=== PATIENT | male | born 1990 | race African-American/Black ===

== ENCOUNTER 2018-07-16 06:11 | Emergency (ER) | payer OTHER ==
[2018-07-16 06:18] VITALS: BP 141/85
[2018-07-16] MEDS ORDERED: KETOROLAC 60 MG/2 ML VIAL IM STA (06:25)
[2018-07-16] MEDS ORDERED: DEXAMETHASONE 10 MG/ML VIAL PO STA (06:25)
[2018-07-16] MEDS ORDERED: CHERRY SYRUP 10 ML UDC PO ONE (06:28)
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
== END 2018-07-16 06:42 | disposition home or self-care (01) ==
LOC: ED 06:11
DX: M54.9 Dorsalgia, unspecified (principal)
CPT/HCPCS: 96372; 99283; A9270

== ENCOUNTER 2018-12-14 11:43 | Emergency (ER) | payer OTHER ==
--- NOTE | 2018-12-14 14:23 | ED Physician Documentation ---
PD HPI HEENT - Stated complaint Stated Complaint: SORE THROAT - Chief complaint Chief Complaint: Heent - History obtained from History obtained from: Patient - History of Present Illness Timing - onset: How many days ago (4) Timing - duration: Days (4) Timing - details: Gradual onset, Still present Location: Throat Improves: Medication Worsens: Swalllowing Associated symptoms: Congestion, Swollen nodes, Headache, Cough Similar symptoms before: Has not had sx before Recently seen: Not recently seen - Additional information Additional information: 28-year-old male has developed a sore throat with minimal cough and chills and no fever about 4 days ago. Review of Systems Constitutional: reports: Chills, Fatigue. denies: Fever Eyes: denies: Decreased vision Ears: denies: Ear pain Nose: reports: Congestion. denies: Rhinorrhea / runny nose Throat: reports: Sore throat Cardiac: denies: Chest pain / pressure, Palpitations Respiratory: reports: Cough. denies: Dyspnea GI: denies: Vomiting PD PAST MEDICAL HISTORY - Past Medical History Past Medical History: No - Past Surgical History Past Surgical History: Yes - Present Medications Home Medications: Ambulatory Orders Medication Instructions Recorded Confirmed Cyclobenzaprine [Flexeril] 10 mg PO ACHS #5 tablet 07/16/18 Emtricitabine/Tenofovir [Truvada 07/16/18 100 mg-150 mg Tablet] Sildenafil Citrate [Viagra] 07/16/18 Amoxicillin 875 mg PO BID #20 tablet 12/14/18 - Allergies Allergies/Adverse Reactions: Allergies Allergy/AdvReac Type Severity Reaction Status Date / Time No Known Drug Allergies Allergy Verified 12/14/18 11:50 - Social History Does the pt smoke?: No Smoking Status: Never smoker Does the pt drink ETOH?: Yes Does the pt have substance abuse?: No - Immunizations Immunizations are current?: Yes - POLST Patient has POLST: No PD ED PE NORMAL - Vitals Vital signs reviewed: Yes (hypertension ) - General General: Alert and oriented X 3, No acute distress, Well developed/nourished - HEENT HEENT: Atraumatic, PERRL, EOMI, Ears normal, Moist mucous membranes, Other (erythema to the posterior pharynx with exudate. 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, No motor deficit, No sensory de ficit, Normal speech Eye Opening: Spontaneous Motor: Obeys Commands Verbal: Oriented GCS Score: 15 - Psych Psych: Normal mood, Normal affect Results - Vitals Vitals: Vital Signs - 24 hr 12/14/18 11:48 Temperature 36.8 C Heart Rate 79 Respiratory 17 Rate Blood Pressure 127/86 H O2 Saturation 95 Oxygen O2 Source Room air - Labs Labs: Laboratory Tests 12/14/18 11:51 Group A Strep Rapid POSITIVE H PD MEDICAL DECISION MAKING - ED course Complexity details: reviewed results, considered differential, d/w patient, d/w family ED course: 28-year-old male with a four-day history of sore throat has a positive rapid strep. He is administered DEXA methadone 10 mg orally and we will place him on some amoxicillin. Departure - Departure Disposition: 01 Home, Self Care Clinical Impression: Strep pharyngitis Condition: Stable Instructions: ED Strep Pharyngitis Conf Follow-Up: SIMA Jay [Provider Group] Prescriptions: Amoxicillin 875 mg PO BID #20 tablet Forms: Activity restrictions
[2018-12-14] MEDS ORDERED: DEXAMETHASONE 10 MG/ML VIAL PO STA (14:27)
[2018-12-14 14:51] VITALS: BP 122/84
== END 2018-12-14 14:47 | disposition home or self-care (01) ==
LOC: ED 11:43
DX: J02.0 Streptococcal pharyngitis (principal)
CPT/HCPCS: 87430; 99283

== ENCOUNTER 2019-03-06 18:24 | Emergency (ER) | payer OTHER ==
--- NOTE | 2019-03-06 19:38 | ED Physician Documentation ---
PD HPI ABD PAIN - Stated complaint Stated Complaint: AB PX - Chief complaint Chief Complaint: Abd Pain - History obtained from History obtained from: Patient - History of Present Illness Timing - onset: Today (Went to [facility] today for dysuria and urethritis. Was given "4 pills and a shot" (presume rocephin/azithro). Started getting abdominal cramping and diarrhea about 1 hour later. Now feeling better.) Review of Systems Constitutional: reports: Reviewed and negative Cardiac: reports: Reviewed and negative Respiratory: reports: Reviewed and negative PD PAST MEDICAL HISTORY - Past Medical History Past Medical History: No Cardiovascular: None Respiratory: None Neuro: None Endocrine/Autoimmune: None GI: None : None HEENT: None Psych: None Musculoskeletal: None Derm: None - Past Surgical History Past Surgical History: Yes - Present Medications Home Medications: Ambulatory Orders Medication Instructions Recorded Confirmed Emtricitabine/Tenofovir [Truvada 07/16/18 100 mg-150 mg Tablet] Sildenafil Citrate [Viagra] 07/16/18 - Allergies Allergies/Adverse Reactions: Allergies Allergy/AdvReac Type Severity Reaction Status Date / Time No Known Drug Allergies Allergy Verified 03/06/19 18:35 - Social History Does the pt smoke?: No Smoking Status: Never smoker Does the pt drink ETOH?: No Does the pt have substance abuse?: No - Immunizations Immunizations are current?: Yes - POLST Patient has POLST: No PD ED PE NORMAL - Vitals Vital signs reviewed: Yes - General General: Alert and oriented X 3, No acute distress - Abdomen Abdomen: Normal bowel sounds, Soft, Non tender - Neuro Neuro: Alert and oriented X 3, Normal speech Results - Vitals Vitals: Vital Signs - 24 hr 03/06/19 18:32 Temperature 36.2 C L Heart Rate 79 Respiratory 18 Rate Blood Pressure 137/95 H O2 Saturation 100 Oxygen O2 Source Room air PD MEDICAL DECISION MAKING - ED course ED course: Resolved abd cramping after zithro today which is not unusual. Benign exam. Departure - Departure Disposition: 01 Home, Self Care Clinical Impression: Abdominal cramping Condition: Good Record reviewed to determine appropriate education?: Yes Instructions: Abdominal Pain Comments: [place], this is a common side effect after high-dose antibiotic treatment. Forms: Activity restrictions
[2019-03-06 19:45] VITALS: BP 131/79
== END 2019-03-06 19:48 | disposition home or self-care (01) ==
LOC: ED 18:24
DX: R10.9 Unspecified abdominal pain (principal)
CPT/HCPCS: 99282; 99283

== ENCOUNTER 2021-03-20 19:24 | Emergency (ER) | payer OTHER ==
[2021-03-20] MEDS ORDERED: LIDOCAINE VISCOUS 2% 15 ML UDC MM STA (20:07)
[2021-03-20] MEDS ORDERED: MAG HYDROX/AL HYDROX/SIMETH 30 ML UDC PO STA (20:07)
[2021-03-20 20:08] LABS: BASOPHILS % (AUTO) 0.6 %; EOSINOPHILS # (AUTO) 0.2 10^3/uL (0.0-0.7); EOSINOPHILS % (AUTO) 3.1 %; HGB - HEMOGLOBIN 13.6 g/dL (14.0-18.0); LYMPHOCYTES # (AUTO) 1.9 10^3/uL (1.5-3.5); LYMPHOCYTES % (AUTO) 36.5 %; MEAN CORPUSCULAR HEMOGLOBIN 29.3 pg (27.0-31.0); MEAN CORPUSCULAR HGB CONC 33.2 g/dL (32.0-36.0); MEAN CORPUSCULAR VOLUME 88.4 fL (80.0-94.0); MEAN PLATELET VOLUME 10.5 fL (7.4-11.4); MONOCYTES # (AUTO) 0.4 10^3/uL (0.0-1.0); MONOCYTES % (AUTO) 7.8 %; NEUTROPHILS # (AUTO) 2.6 10^3/uL (1.5-6.6); NEUTROPHILS % (AUTO) 51.8 %; PLT - PLATELET COUNT 172 10^3/uL (130-450); RED BLOOD COUNT 4.64 10^6/uL (4.70-6.10); RED CELL DISTRIBUTION WIDTH 12.5 % (12.0-15.0); WHITE BLOOD COUNT 5.1 x10^3/uL (4.8-10.8)
--- NOTE | 2021-03-20 20:08 | ED Physician Documentation ---
History of Present Illness - Stated complaint Stated Complaint: CP/SORE THROAT/HEADACHE - Chief complaint Chief Complaint: Cardiac - Additonal information Additional information: 30-year-old male presents emergency department for evaluation of a sore throat that he woke up with this morning. He has no cough fevers or congestion however as the day progressed he then developed a headache as well as substernal nonradiating chest pain. He denies any history of hypertension or diabetes. He does not take any prescribed medications. He does use nicotine patches. He is mostly concerned that he could have strep throat. [employer] and denies COVID-19 contacts. Review of Systems Constitutional: denies: Fever, Chills Eyes: reports: Reviewed and negative Ears: reports: Reviewed and negative Nose: denies: Rhinorrhea / runny nose, Congestion Throat: reports: Sore throat. denies: Oral lesions / sores, Swollen tonsils, Swallowed foreign body, Reviewed and negative Cardiac: reports: Chest pain / pressure. denies: Palpitations, Pedal edema Respiratory: denies: Dyspnea, Cough, Hemoptysis GI: denies: Abdominal Pain, Nausea, Vomiting : denies: Dysuria, Frequency, Hesitancy Skin: denies: Rash, Lesions Musculoskeletal: reports: Reviewed and negative Neurologic: reports: Headache PD PAST MEDICAL HISTORY - Past Medical History Cardiovascular: None Respiratory: None Neuro: None Endocrine/Autoimmune: None GI: None : None HEENT: None Psych: None Musculoskeletal: None Derm: None - Past Surgical History Past Surgical History: Yes - Present Medications Home Medications: Ambulatory Orders Medication Instructions Recorded Confirmed Emtricitabine/Tenofovir [Truvada 1 tab PO DAILY 07/16/18 03/20/21 100 mg-150 mg Tablet] Sildenafil Citrate [Viagra] 25 mg PO DAILY 07/16/18 03/20/21 Famotidine [Pepcid] 20 mg PO BID #60 tablet 03/20/21 Fluoxetine HCl [Prozac] 20 mg PO DAILY 03/20/21 03/20/21 - Allergies Allergies/Adverse Reactions: Allergies Allergy/AdvReac Type Severity Reaction Status Date / Time No Known Drug Allergies Allergy Verified 03/20/21 19:34 - Social History Does the pt smoke?: No Smoking Status: Never smoker Does the pt drink ETOH?: No Does the pt have substance abuse?: No - Immunizations Immunizations are current?: Yes - POLST Patient has POLST: No PD ED PE NORMAL - General General: Alert and oriented X 3, No acute distress - HEENT HEENT: PERRL, Moist mucous membranes, Other (Mild posterior oropharynx erythema. Uvula is midline. No tonsillar exudate. No soft palate asymmetry or swelling. Normal phonation. No trismus. Full range of motion of the neck. No tender anterior cervical lymphadenopathy.) - Neck Neck: Supple, no meningeal sign. No: No adenopathy - Cardiac Cardiac: RRR, No murmur - Respiratory Respiratory: Clear bilaterally - Abdomen Abdomen: Normal bowel sounds, Soft, Non tender, Non distended - Back Back: No CVA TTP, No spinal TTP - Derm Derm: Warm and dry - Extremities Extremities: No deformity - Neuro Neuro: Alert and oriented X 3 Results - Vitals Vitals: Vital Signs - 24 hr 03/20/21 03/20/21 03/20/21 19:28 19:45 21:34 Temperature 36.7 C Heart Rate 71 68 71 Respiratory 14 26 H 19 Rate Blood Pressure 152/84 H 135/79 H 132/61 H O2 Saturation 97 98 100 Oxygen O2 Source Room air - EKG (time done) 1927 Rate: Rate (enter#) (73) Rhythm: NSR Orient: Normal Intervals: Normal OR. No: Prolonged QT QRS: Normal Ischemia: Normal ST segments Compare to prior EKG: Old EKG unavailable Computer interpretation: Agree with computer - Labs Labs: Laboratory Tests 03/20/21 03/20/21 03/20/21 19:51 19:51 19:51 WBC 5.1 RBC 4.64 L Hgb 13.6 L Hct 41.0 L MCV 88.4 MCH 29.3 MCHC 33.2 RDW 12.5 Plt Count 172 MPV 10.5 Neut # (Auto) 2.6 Lymph # (Auto) 1.9 [place] # (Auto) 0.4 Eos # (Auto) 0.2 Baso # (Auto) 0.0 Absolute Nucleated RBC 0.00 Nucleated RBC % 0.0 Sodium 139 Potassium 4.1 Chloride 104 Carbon Dioxide 28 Anion Gap 7.0 BUN 10 Creatinine 0.9 Estimated GFR (MDRD) 119 Glucose 80 Calcium 9.2 Troponin I High Sens 2.6 Group A Strep Rapid 03/20/21 20:05 WBC RBC Hgb Hct MCV MCH MCHC RDW Plt Count MPV Neut # (Auto) Lymph # (Auto) [place] # (Auto) Eos # (Auto) Baso # (Auto) Absolute Nucleated RBC Nucleated RBC % Sodium Potassium Chloride Carbon Dioxide Anion Gap BUN Creatinine Estimated GFR (MDRD) Glucose Calcium Troponin I High Sens Group A Strep Rapid Negative - Rads (name of study) CXR Radiology: Final report received (No acute cardiopulmonary process.) PD MEDICAL DECISION MAKING - ED course Complexity details: reviewed results, re-evaluated patient, considered differential, d/w patient ED course: This is a well-appearing 30-year-old male presents the emergency department for evaluation of sore throat and substernal chest pain with associated headache. Symptoms began today. No history of hypertension or diabetes but is a daily nicotine user. Screening chest x-ray and EKG unremarkable. Screening labs also without acute findings. Patient rapid strep is negative. This gentleman was given a GI cocktail with good relief of the chest pain. Given his age and risk factors including nicotine use I do suspect that this may be related to silent GERD. Will recommend that he begin taking Pepcid daily. A COVID-19 screen is pending and recommended that he remain in quarantine until results are known. Emergent and worrisome return precautions were discussed. Departure - Departure Disposition: 01 Home, Self Care Clinical Impression: Sore throat Chest pain Qualifiers: Chest pain type: unspecified Qualified Code(s): R07.9 - Chest pain, unspecified Condition: Stable Record reviewed to determine appropriate education?: Yes Instructions: ED Chest Pain Noncardiac Ch Prescriptions: Famotidine [Pepcid] 20 mg PO BID #60 tablet Comments: Sharif dela cruz were seen in the emergency department today for chest pain and a sore throat. Your strep testing is negative. We will send it for culture but will not order antibiotics unless the culture is positive. Your chest x-ray EKG and screening labs are all also unremarkable. You do not have pneumonia and you are not having a heart attack. However I do suspect that the chest pain is likely silent acid reflux since the medicine that I gave you lidocaine and Maalox made the chest pain go away. For this reason I would like you to begin taking Pepcid twice daily. Please discuss this ED visit with [facility]. If your symptoms are not improving may return to the emergency department. A COVID-19 test is pending on you. Please remain in quarantine until the results are known. You have a Covid test pending. You need to self quarantine until the result is done and negative. Do not leave your house. Do not get near anybody. The results should be done in 48 to 72 hours. We will call with a positive result, the fastest way to get a negative result for confirmation though is to go to the hospital website at [email or web address], click on the my [employer] tab and sign up for the patient portal. If any friends or family get sick and would like to have a Covid test done, but do not have signs or symptoms that would necessitate being hospitalized, we encourage testing through our coronavirus swabbing station, call [phone] to schedule an appointment.
[2021-03-20 20:14] LABS: CALCIUM 9.2 mg/dL (8.5-10.3); CREATININE 0.9 mg/dL (0.6-1.2); POTASSIUM 4.1 mmol/L (3.5-5.0)
[2021-03-20 20:19] LABS: RAPID STREP SCREEN Negative (Negative)
--- NOTE | 2021-03-20 21:15 | XRAY Report ---
PROCEDURE: Chest 1 View X-Ray INDICATIONS: chest pain TECHNIQUE: One view of the chest was acquired. COMPARISON: None. FINDINGS: Surgical changes and devices: None. Lungs and pleura: No pleural effusions or pneumothorax. Lungs are clear. Mediastinum: Mediastinal contours appear normal. Heart size is normal. Bones and chest wall: No suspicious bony lesions. Overlying soft tissues appear unremarkable. IMPRESSION: 1. No acute cardiopulmonary disease. Reviewed by: Junior Coronel MD on 03/20/2021 9:14 PM PDT Approved by: Junior Coronel MD on 03/20/2021 9:14 PM PDT Station ID: [id number]
[2021-03-20 21:39] VITALS: BP 132/61
== END 2021-03-20 22:04 | disposition home or self-care (01) ==
LOC: ED 19:24
DX: J02.9 Acute pharyngitis, unspecified (principal); R07.89 Other chest pain; R51.9 Headache, unspecified; Z20.822 Contact with and (suspected) exposure to COVID-19; Z79.899 Other long term (current) drug therapy
CPT/HCPCS: 36415; 71045; 80048; 84484; 85025; 87070; 87430; 87635; 93005; 99284; A9270

== ENCOUNTER 2021-04-23 08:30 | Outpatient (CLI) | payer OTHER ==
--- NOTE | 2021-04-23 14:19 | MRI Report ---
PROCEDURE: Lumbar Spine W/O INDICATIONS: LOW BACK PAIN TECHNIQUE: Noncontrast sagittal T1 spin echo and T2 fast echo, sagittal STIR, axial T1 and T2 fast spin echo thr ough the lumbar spine. In cases with scoliosis, additional coronal T2 fast spin echo may be performe d. COMPARISON: None. FINDINGS: Image quality: Excellent. Alignment and Curvature: No plain films are available for comparison. Thus, for numbering purposes, 5 lumbar type vertebral bodies will be presumed for the current report. This should be confirmed with plain film correlation prior to any lumbar spinal intervention. There is mild grade 1 retrolisthesis of L3 on L4 and L4 on L5. Bone Marrow: Marrow is of normal overall signal. No acute vertebral body compression fractures. Mi nimal reactive signal within the end but adjacent to the L2-L3, L3-L4, and L4-L5 intervertebral discs . Spinal Cord: Conus medullaris terminates at the L1-L2 disc level. Visualized cord demonstrates norm al signal and size. Paraspinous Soft Tissues: No paravertebral masses. T12-L1: Normal in appearance. L1-L2: Mild facet and ligament flavum hypertrophy. Mild epidural lipomatosis. Mild canal stenosis. No foraminal stenosis. L2-L3: Mild epidural lipomatosis. Mild canal stenosis. No foraminal stenosis. L3-L4: Mild disc desiccation and diffuse disc bulge with superimposed left far lateral protrusion. Mild facet and ligament flavum hypertrophy. Mild epidural lipomatosis. Mild canal stenosis. Moderate to severe left foraminal stenosis. Mild right foraminal stenosis. Mild left L3 nerve root compression , lateral to the neural foramen. L4-L5: Mild disc height loss and desiccation. Mild diffuse disc bulge. Mild facet and ligament flav um hypertrophy. Mild epidural lipomatosis. Mild canal stenosis. Moderate subarticular foraminal steno sis bilaterally. L5-S1: Mild disc height loss and desiccation. Mild diffuse disc bulge. Mild facet and ligament flav um hypertrophy. Moderate epidural lipomatosis. Mild canal stenosis. Moderate bilateral foraminal sten osis IMPRESSION: 1. Multilevel degenerative disc and facet disease, in addition to epidural lipomatosis and ligamentum flavum hypertrophy. 2. Mild multilevel canal stenoses. 3. Multilevel foraminal stenoses, worst at L3-L4 where there is associated neural impingement. Her, c orrelation with clinical symptoms to ascertain relevance of this finding. Reviewed by: Jennifer Lofton MD on 04/23/2021 2:17 PM PDT Approved by: Jennifer Lofton MD on 04/23/2021 2:17 PM PDT Station ID: [id number]
== END 2021-04-23 08:31 | disposition home or self-care (01) ==
LOC: DI 08:30
DX: M51.36 Other intervertebral disc degeneration, lumbar region (principal); M48.061 Spinal stenosis, lumbar region without neurogenic claudication; E88.2 Lipomatosis, not elsewhere classified